=== PATIENT | male | born 1955 ===

== ENCOUNTER 2020-09-06 11:38 | Outpatient (REF) | payer SELFPAY ==
[2020-09-06 12:30] LABS: Cholesterol 173 mg/dL
[2020-09-07 09:18] LABS: SARS COV2 IgG Negative (Negative)
== END 2020-09-06 11:39 | disposition home or self-care (01) ==
LOC: HO.LNC 11:38
PROVIDERS: Visit Provider Pathology Anatomic Pathology & Clinical Pathology
DX: Z13.89 Encounter for screening for other disorder (principal)
CPT/HCPCS: 82465; 86769